=== PATIENT | male | born 1975 | race Caucasian/White ===

== ENCOUNTER 2016-09-29 20:46 | Inpatient (IN) | payer OTHER ==
[2016-09-29] MEDS ORDERED: NS 1,000 ML IV ONE ×2 (22:05→22:56)
[2016-09-29] MEDS ORDERED: IBUPROFEN 200 MG TAB PO ONE (22:17)
--- NOTE | 2016-09-29 22:17 | EDPHY ---
H & P Stated Complaint: fall 2 days ago bruises to face "lost a day" Time Seen by Provider: 09/29/16 21:31 HPI/ROS: Chief complaint: Sore throat, fevers and chills, fall, amnesia HPI: 41-year-old male with 4 days of sore throat, seen at urgent care with a negative strep. He has been having fevers and chills to 103. Some generalized weakness. Some body aches, nausea and vomiting. It states it last night he fell down the stairs, was found vomit stairs by a friend. Does not know how long as there. Did not show up to work today and is amnestic to most of the day. Feels that he may been delirious. Has had some diarrhea as well. Has had some pain with swallowing. He has been drinking increased fluids today. Last took some ibuprofen yesterday. Denies any other past medical history. No medications or allergies. Has a dry cough which is nonproductive. Moderate occipital headache. ROS: 10 point Review of Systems is negative except as noted in the HPI. Past medical history: none Medications: None Allergies: None Social history: Does not smoke cigarettes, does use daily marijuana, does drink occasional alcohol, none last night Physical exam: Gen: Awake, Alert, No Distress, febrile, tachycardic HEENT: He has periorbital ecchymosis without tenderness, step-offs or deformity Nose: no rhinorrhea Eyes: PERRLA, EOMI Mouth: Moist mucosa Neck: Supple, no JVD Chest: nontender, lungs clear to auscultation Heart: S1, S2 normal, no murmur Abd: Soft, non-tender, no guarding Back: no CVA tenderness, no midline tenderness Ext: no edema, non-tender Skin: no rash Neuro: CN II-XII intact, Sensation grossly intact, Strength 5/5 in bilateral upper and lower extremities - Personal History Current Tetanus/Diphtheria Vaccine: Unsure Current Tetanus Diphtheria and Acellular Pertussis (TDAP): Unsure - Medical/Surgical History Hx Asthma: Yes Hx Chronic Respiratory Disease: No Hx Diabetes: No Hx Cardiac Disease: No Hx Renal Disease: No Hx Cirrhosis: No Hx Alcoholism: No Hx HIV/AIDS: No Hx Splenectomy or Spleen Trauma: No Other PMH: r ankle fx and repair - Social History Smoking Status: Current some day smoker Constitutional: Initial Vital Signs Temperature (C) 36.5 C 09/29/16 20:58 Heart Rate 122 H 09/29/16 20:58 Respiratory Rate 18 09/29/16 20:58 Blood Pressure 104/78 09/29/16 20:58 O2 Sat (%) 88 L 09/29/16 20:58 O2 Delivery Mode Room Air Allergies/Adverse Reactions: No Known Allergies Allergy (Unverified 09/29/16 20:57) Home Medications: Medication Instructions Recorded NK [No Known Home Meds] 09/29/16 Medical Decision Making - Diagnostics Imaging: CT head: Tiny opacity above the left tentorium consistent with a small subarachnoid or subdural hemorrhage. No other intraparenchymal his findings. There is no basilar skull fracture. There is a nasal bone fracture of uncertain age. Interpreted by Dr. Akins. Chest x-ray: Negative. ED Course/Re-evaluation: Chest x-ray is negative. CT scan of his brain shows a tiny subarachnoid above the left tentorium. White count is elevated, heart rate is elevated which meets SIRS criteria. Creatinine is greater than 2 which meets severe sepsis criteria. Severe sepsis is declared at 11:36 p.m.. Cultures have been sent. Lactic acid is pending. 23:[address] dumont, neurosurgery. He will consult on the patient in the morning. He does not want any further CT scanning done until he has evaluated the patient. 23:[address] Mann, trauma surgery. He will consult on the case but does not believe the patient needs to be drip we admitted to the trauma service on last there is a concern by Internal Medicine. Will discussed with the hospitalist. 23:[address] thornton, hospitalist. She will accept the patient to her care. Trauma surgery and Neurosurgery will be consulting. Patient is awake alert without complaint. He is getting his IV fluid bolus right now. Will hold off on antibiotics given his symptoms are likely viral he has no focal bacterial source of infection at this time. Dr. thornton is happy with this decision. Will admit to the [facility] for further care. - Data Points Laboratory Results: Laboratory Results 09/29/16 22:18 09/29/16 22:18 09/29/16 09/29/16 09/29/16 22:18 22:18 22:18 WBC 22.38 10^3/uL H 10^3/uL (3.80-9.50) RBC 4.74 10^6/uL 10^6/uL (4.40-6.38) Hgb 15.5 g/dL g/dL (13.7-17.5) Hct 44.9 % % (40.0-51.0) MCV 94.7 fL fL (81.5-99.8) MCH 32.7 pg pg (27.9-34.1) MCHC 34.5 g/dL g/dL (32.4-36.7) RDW 11.9 % % (11.5-15.2) Plt Count 339 10^3/uL 10^3/uL (150-400) MPV 10.1 fL fL (8.7-11.7) Neut % (Auto) 90.9 % H % (39.3-74.2) Lymph % (Auto) 3.6 % L % (15.0-45.0) [place] % (Auto) 4.9 % % (4.5-13.0) Eos % (Auto) 0.0 % L % (0.6-7.6) Baso % (Auto) 0.1 % L % (0.3-1.7) Nucleat RBC Rel Count 0.0 % % (0.0-0.2) Absolute Neuts (auto) 20.32 10^3/uL H 10^3/uL (1.70-6.50) Absolute Lymphs (auto) 0.80 10^3/uL L 10^3/uL (1.00-3.00) Absolute Monos (auto) 1.10 10^3/uL H 10^3/uL (0.30-0.80) Absolute Eos (auto) 0.01 10^3/uL L 10^3/uL (0.03-0.40) Absolute Basos (auto) 0.03 10^3/uL 10^3/uL (0.02-0.10) Absolute Nucleated RBC 0.00 10^3/uL 10^3/uL (0-0.01) Immature Gran % 0.5 % % (0.0-1.1) Immature Gran # 0.12 10^3/uL H 10^3/uL (0.00-0.10) PT Pending INR Pending APTT Pending Sodium Potassium Chloride Carbon Dioxide Anion Gap BUN Creatinine Estimated GFR Glucose Calcium Total Bilirubin Pending 09/29/16 22:18 WBC RBC Hgb Hct MCV MCH MCHC RDW Plt Count MPV Neut % (Auto) Lymph % (Auto) [place] % (Auto) Eos % (Auto) Baso % (Auto) Nucleat RBC Rel Count Absolute Neuts (auto) Absolute Lymphs (auto) Absolute Monos (auto) Absolute Eos (auto) Absolute Basos (auto) Absolute Nucleated RBC Immature Gran % Immature Gran # PT INR APTT Sodium 135 mEq/L mEq/L (134-144) Potassium 5.1 mEq/L mEq/L (3.5-5.2) Chloride 93 mEq/L L mEq/L (97-110) Carbon Dioxide 24 mEq/l mEq/l (22-31) Anion Gap 18 mEq/L H mEq/L (8-16) BUN 26 mg/dL H mg/dL (7-23) Creatinine 2.0 mg/dL H mg/dL (0.7-1.3) Estimated GFR 37 Glucose 205 mg/dL H mg/dL (70-100) Calcium 9.0 mg/dL mg/dL (8.5-10.4) Total Bilirubin Medications Given: Discontinued Medications Sodium Chloride (Ns) 1,000 mls @ 0 mls/hr IV ONCE ONE PRN Reason: Wide Open Stop: 09/29/16 22:06 Last Admin: 09/29/16 22:23 Dose: 1,000 mls Sodium Chloride (Ns) 1,000 mls @ 0 mls/hr IV ONCE ONE PRN Reason: Wide Open Stop: 09/29/16 22:57 Last Admin: 09/29/16 23:44 Dose: 1,000 mls Ibuprofen (Motrin) 400 mg PO EDNOW ONE Stop: 09/29/16 22:18 Last Admin: 09/29/16 22:37 Dose: Not Given Ketorolac Tromethamine (Toradol) 15 mg IVP EDNOW ONE Stop: 09/29/16 22:25 Last Admin: 09/29/16 22:36 Dose: 15 mg Ketorolac Tromethamine (Toradol) 15 mg IVP EDNOW ONE Stop: 09/29/16 22:43 Last Admin: 09/29/16 22:46 Dose: 15 mg Ondansetron HCl (Zofran) 4 mg IVP EDNOW ONE Stop: 09/29/16 22:25 Last Admin: 09/29/16 22:36 Dose: 4 mg Sodium Chloride (Ns *For Sepsis Order Set Only*) 1,973 ml 30 ml/kg (1973 ml) IV EDNOW ONE Stop: 09/29/16 23:34 Last Admin: 09/29/16 23:46 Dose: 1,973 ml Departure - Departure Disposition: [facility] Inpatient Acute Clinical Impression: Viral illness, Dehydration, Renal insufficiency, Subarachnoid hemorrhage Condition: Fair Referrals: Harry Garrido MD [Primary Care Provider] - As per Instructions
[2016-09-29] MEDS ORDERED: KETOROLAC 15 MG/1 ML SDV IVP ONE ×2 (22:24→22:42)
[2016-09-29] MEDS ORDERED: ONDANSETRON 4 MG/2 ML VIAL IVP ONE (22:24)
[2016-09-29 22:37] LABS: ANION GAP 18 mEq/L (8-16); CARBON DIOXIDE 24 mEq/l (22-31); CHLORIDE 93 mEq/L (97-110); GLOMERULAR FILTRATION RATE 37; GLUCOSE 205 mg/dL (70-100); POTASSIUM 5.1 mEq/L (3.5-5.2); SODIUM 135 mEq/L (134-144)
[2016-09-29 23:01] LABS: % IMMATURE GRANULYOCYTES 0.5 % (0.0-1.1); ABSOLUTE IMMATURE GRANULOCYTES 0.12 10^3/uL (0.00-0.10); ADD DIFF? NO; ADD MORPH? NO; ADD SCAN? NO; ATYPICAL LYMPHOCYTE FLAG 10 (0-99); FRAGMENT RBC FLAG 0 (0-99); HEMATOCRIT 44.9 % (40.0-51.0); HEMOGLOBIN 15.5 g/dL (13.7-17.5); LEFT SHIFT FLG 0 (0-99); LIPEMIA HEMOLYSIS FLAG 90 (0-99); MEAN CELL HEMOGLOBIN 32.7 pg (27.9-34.1); MEAN CELL HEMOGLOBIN CONCENTR. 34.5 g/dL (32.4-36.7); MEAN CELL VOLUME 94.7 fL (81.5-99.8); MEAN PLATELET VOLUME 10.1 fL (8.7-11.7); PLATELET CLUMPS FLAG 20 (0-99); PLATELET COUNT 339 10^3/uL (150-400); RED BLOOD CELL COUNT 4.74 10^6/uL (4.40-6.38); RED CELL DISTRIBUTION WIDTH 11.9 % (11.5-15.2)
[2016-09-29] MEDS ORDERED: NS 1,000 ML BAG *FOR SEPSIS ORDER SET ONLY IV ONE (23:33)
[2016-09-29 23:51] LABS: BILIRUBIN,TOTAL 0.8 mg/dL (0.1-1.4); INR 1.29 (0.83-1.16); PROTIME(PATIENT) 16.1 SEC (12.0-15.0)
[2016-09-29 23:52] LABS: APTT 28.9 SEC (23.0-38.0)
[2016-09-30] MEDS ORDERED: ONDANSETRON 4 MG/2 ML VIAL IVP PRN (00:10)
[2016-09-30] MEDS ORDERED: ONDANSETRON DISINTEGRATING 4 MG TAB PO PRN (00:10)
[2016-09-30] MEDS ORDERED: HYDROCODONE/APAP 5/325 TAB PO PRN (00:10)
[2016-09-30] MEDS ORDERED: ACETAMINOPHEN 500 MG TAB PO PRN (00:10)
[2016-09-30] MEDS ORDERED: LORazepam 0.5 MG TAB PO PRN (00:10)
--- NOTE | 2016-09-30 00:49 | GCON ---
DATE OF CONSULTATION: 09/30/2016 CHIEF COMPLAINT: Possible fall. HISTORY OF PRESENT ILLNESS: This is a 41-year-old male who presents to the emergency department thi s evening after being found by his girlfriend. Per both their report, the patient was last seen Sat evening where he had dinner with friends. He was drinking alcohol and went home about 10:30 at night. He failed to show up for work this morning, and his girlfriend finished her job around 5 p.m . and found him at home in bed. He is amnestic to the events that happened throughout the entire da y. His first memory being that of seeing girlfriend this evening. He does state that he thinks he ma y have fallen, but is not sure. He does state that he has some steep steps but really has no idea a s to where the entire day went. He presents here complaining of small headache, otherwise feels well . Denies nausea or vomiting. His airway, breathing, and circulation are completely intact at this point in time; however, he does have some significant throat pain, for which he is being admitted to the Medicine Service for further treatment. The remainder of his primary survey on my examination is completely within normal limits. PAST MEDICAL HISTORY: None, although he does not see physicians regularly. PAST SURGICAL HISTORY: Right ankle injury fixed remotely. CURRENT MEDICATIONS: None. ALLERGIES: None. SOCIAL HISTORY: Social drinker, previous cocaine user. Does use marijuana and occasional benzodiaz epines. REVIEW OF SYSTEMS: A full 10-point review was performed, and unless explicitly stated above is othe rwise negative. PHYSICAL EXAMINATION: VITAL SIGNS: Temperature 36.1, blood pressure 116/74, heart rate 108, and he is 99% on room air. GENERAL: He is alert, somewhat disoriented, but in no acute distress. HEENT: Pupils are equal, round, and reactive to light and accommodation bilaterally. His extraocular mov ements are intact. NECK: Soft, supple without crepitus or tenderness. There is no midline C-spine tenderness. CHEST: Nontender. There is no crepitus or step off. LUNGS: Clear. HEART: Regular heart tones without murmurs. ABDOMEN: Soft, nondistended, with good bowel sounds. PELVIS: Stabl e to both AP and lateral compression. He has 2+ femoral, popliteal, DP pulses bilaterally. EXTREMI TIES: No visible signs of injury and are otherwise warm and well perfused. NEURO: Completely neur ologically intact without any focal deficits. LABORATORY DATA: Leukocytosis to 22,000, glucose elevated at 205. CT scan shows a small tentorial subdural hematoma. Chest x-ray is clear. ASSESSMENT AND PLAN: A 41-year-old male, possible fall with small subdural. The patient will be shi bsequently admitted for his underlying sepsis and leukocytosis to the Medicine Service to be treated appropriately. I see no other obvious signs of trauma other than some bilateral black eyes. We wi ll plan to monitor him overnight. I am okay with him eating. Neurosurgical Service will also consu lt for his small subdural, likely nonoperative. Will plan to re-evaluate with a tertiary survey in the morning to ensure that no other findings are found. /[id number]/MODL
[2016-09-30 01:03] LABS: COLOR AMBER; LEUKOCYTE ESTERASE,URINE NEGATIVE (NEGATIVE); NITRITE,URINE NEGATIVE (NEGATIVE)
[2016-09-30 01:06] LABS: BACTERIA TRACE /hpf (NONE SEEN); HYALINE CASTS 25-50 /lpf (0-1); MUCUS 4+ /lpf (NONE-1+); WBC,URINE 15-25 /hpf (0-3)
--- NOTE | 2016-09-30 01:35 | PDGENHP ---
History and Physical - Chief Complaint feeling unwell - History of Present Illness Patient is a 41-year-old male with no known past medical history, although with no medical follow-up for over 20 years, presents to the ED complaining of sore throat, fevers. Patient states symptoms started on 09/25 with sore throat and R -sided neck pain, associated with a fever to 103F. He was evaluated in an Urgent care, tested negative for strep and was discharged without any antibiotics. Reports his symptoms continued, but he felt well enough to go to work on 09/28 although he was having persistence fevers between 101-103F and sore throat. During this time he also had decreased oral intake /lack of appetite, but denies any nausea or vomiting. Patient returned home from work early on 09/28 reports remembering eating dinner and then going to sleep. The next thing he remembers is being awoke in by his girlfriend this evening at around 5:00 p.m. Patient's girlfriend states when she arrived at his house he was sleeping, but on awakening was confused and had bruises on his face. He also developed several episodes of vomiting, nonbilious/nonbloody, and one episode of diarrhea. Given this, patient's girlfriend brought him to the ED for further evaluation. Patient is not remember any obvious trauma to the himself, although he reports having very steep the steps in his home and states he may have fallen off of these. He reports pain on the bridge of his nose, but denies any other sites of pain. He feels his sore throat has been improving and is less severe today. He denies any associated headache, cough, abdominal pain or dysuria. On arrival to the ED patient was afebrile and hemodynamically stable. Labs revealed leukocytosis, elevated lactate and elevated BUN and creatinine. Chest x-ray did not reveal any obvious infiltrate. CT head was obtained and revealed nasal bone fracture and small volume left sub-tentorial subarachnoid hemorrhage. general surgery and Neurosurgery were consulted and the patient was admitted to the hospital service for further management. History Information - Allergies/Home Medication List Allergies/Adverse Reactions: No Known Allergies Allergy (Unverified 09/29/16 20:57) Home Medications: NK [No Known Home Meds] 09/29/16 [Last Taken Unknown] I have personally reviewed and updated: family history, medical history, social history, surgical history - Past Medical History Additional medical history: No known medical history - Surgical History Additional surgical history: right ankle fracture repair - Family History Positive for: non-pertinent - Social History Smoking Status: Never smoked Alcohol Use: Occasionally Drug Use: Marijuana ( smokes marijuana daily), Other ( distant history of cocaine use, occasional benzo use, denies any other recreational drug use) Review of Systems ROS: 10pt was reviewed & negative except for what was stated in HPI & below Physical Exam Temp Pulse Resp BP Pulse Ox 36.1 C 108 H 18 116/74 89 L 09/29/16 23:44 09/30/16 00:16 09/30/16 00:16 09/30/16 00:16 09/30/16 00:16 Constitutional: no apparent distress, appears nourished, not in pain Eyes: PERRL, anicteric sclera, EOMI, other (periorbital ecchymoses bilaterally) Ears, Nose, Mouth, Throat: moist mucous membranes, hearing normal, ears appear normal, no oral mucosal ulcers Cardiovascular: regular rate and rhythym, no murmur, rub, or gallop, pulses symmetric bilaterally, No JVD, No edema Peripheral Pulses: 2+: dorsalis-pedis (R), dorsalis-pedis (L) Respiratory: no respiratory distress, no rales or rhonchi, clear to auscultation Gastrointestinal: normoactive bowel sounds, soft, non-tender abdomen, no palpable masses, No tenderness, No guarding, No rebound, No distension Genitourinary: no bladder fullness, no bladder tenderness Skin: warm, normal color, no rashes or abrasions, no fluctuance, No mottled Musculoskeletal: full muscle strength, no muscle tenderness, normal joint ROM, no joint effusions Neurologic: AAOx3, sensation intact bilaterally, CN II-XII Intact, No weakness, No numbness Psychiatric: interacting appropriately, not anxious, not encephalopathic, thought process linear Lab Data & Imaging Review 09/30/16 04:26 09/30/16 04:26 WBC 22.38 10^3/uL (3.80-9.50) H 09/29/16 22:18 RBC 4.74 10^6/uL (4.40-6.38) 09/29/16 22:18 Hgb 15.5 g/dL (13.7-17.5) 09/29/16 22:18 Hct 44.9 % (40.0-51.0) 09/29/16:18 MCV 94.7 fL (81.5-99.8) 09/29/16 22:18 MCH 32.7 pg (27.9-34.1) 09/29/16: MCHC 34.5 g/dL (32.4-36.7) 09/29/16:18 RDW 11.9 % (11.5-15.2) 09/29/16: Plt Count 339 10^3/uL (150-400) 09/29/16: MPV 10.1 fL (8.7-11.7) 09/29/16:18 Neut % (Auto) 90.9 % (39.3-74.2) H 09/29/16: Lymph % (Auto) 3.6 % (15.0-45.0) L 09/29/16:18 [place] % (Auto) 4.9 % (4.5-13.0) 09/29/16:18 Eos % (Auto) 0.0 % (0.6-7.6) L 09/29/16: Baso % (Auto) 0.1 % (0.3-1.7) L 09/29/16:18 Nucleat RBC Rel Count 0.0 % (0.0-0.2) 09/29/16: Absolute Neuts (auto) 20.32 10^3/uL (1.70-6.50) H 09/29/16:18 Absolute Lymphs (auto) 0.80 10^3/uL (1.00-3.00) L 09/29/16:18 Absolute Monos (auto) 1.10 10^3/uL (0.30-0.80) H 09/29/16:18 Absolute Eos (auto) 0.01 10^3/uL (0.03-0.40) L 09/29/16: Absolute Basos (auto) 0.03 10^3/uL (0.02-0.10) 02/25/17 22:18 Absolute Nucleated RBC 0.00 10^3/uL (0-0.01) 09/29/16 22:18 Immature Gran % 0.5 % (0.0-1.1) 09/29/16 22:18 Immature Gran # 0.12 10^3/uL (0.00-0.10) H 09/29/16 22:18 PT 16.1 SEC (12.0-15.0) H 09/29/16 22:18 INR 1.29 (0.83-1.16) H 09/29/16 22:18 APTT 28.9 SEC (23.0-38.0) 09/29/16 22:18 VBG Lactic Acid 2.8 mmol/L (0.7-2.1) H 09/30/16 00:02 Sodium 135 mEq/L (134-144) 09/29/16 22:18 Potassium 5.1 mEq/L (3.5-5.2) 09/29/16 22:18 Chloride 93 mEq/L (97-110) L 09/29/16 22:18 Carbon Dioxide 24 mEq/l (22-31) 09/29/16 22:18 Anion Gap 18 mEq/L (8-16) H 09/29/16 22:18 BUN 26 mg/dL (7-23) H 09/29/16 22:18 Creatinine 2.0 mg/dL (0.7-1.3) H 09/29/16 22:18 Estimated GFR 37 09/29/16 22:18 Glucose 205 mg/dL (70-100) H 09/29/16 22:18 Calcium 9.0 mg/dL (8.5-10.4) 09/29/16 22:18 Total Bilirubin 0.8 mg/dL (0.1-1.4) 09/29/16 22:18 Visualized and Interpreted Chest x-ray results: Yes Chest X-Ray results: no infiltrate, normal Visualized and Interpreted imaging results: Yes Interpretation: CT head: nasal bone fracture, small volume subarachnoid hemorrhage Assessment & Plan Assessment: patient is a 41-year-old male with no known medical history presents to the ED complaining of 4 days of sore throat, fevers and recently vomiting. ED evaluation reveals leukocytosis, elevated lactate and acute renal failure consistent with an acute infection likely viral. In addition, patient has evidence of facial trauma with CT head confirming subarachnoid hemorrhage, although he cannot remember any obvious trauma. Plan: # severe sepsis Patient with tachycardia, leukocytosis and symptoms of upper respiratory infection. Elevated lactic acid and evidence of renal dysfunction is consistent with severe sepsis. CXR does not reveal evidence of pneumonia. UA and flu swab are pending. On exam, patient without obvious lymphadenopathy or cervical tenderness. Suspect viral upper respiratory infection. Will hold off on antibiotics at this time and treat symptomatically. - IVF hydration - f/u blood cultures, UA and flu swab - zofran prn nausea - repeat lactic acid s/p 30cc/kg fluid bolus - pain relief prn # facial trauma, intracranial hemorrhage Patient does not recall an obvious trauma, but reports being quite fatigued/ lethargic over the course of 09/28, with a possible fall down 1-2 stairs. Acute encephalopathy/lethargy likely related to severe dehydration and acute infection. MS appears to be back at baseline after initial fluid resuscitation. Will check drug screen. Neurosurgery has been consulted regarding ICH, will f/ u. Trauma surgery also onboard, evaluation appreciated. # elevated BUN/Cr Presumed to be acute renal failure due to severe dehydration (pre-renal) and possible ATN due to severe sepsis. However, patient does not have regular medical follow-up, so baseline renal function is not known. Will reassess after initial IVF resuscitation. Will also check UA for proteinuria, urine sodium, creatinine and also renal ultrasound. Will avoid NSAIDS and all nephrotoxic agents. # lactic acidosis Appears to be related to significant hypovolemia and sepsis. Will trend after appropriate IVF resuscitation. # acute hypoxia Patient occasionally hypoxic over ED course, which then resolves without supplemental O2. CXR without obvious abnormalities. Although patient denies, will check drug screen to r/o opioid use. # hyperglycemia Glu on BMP is >200. Patient does not report a personal or family history of DM, but he has not been evaluated by a PMD for > 20 years. Will check HbA1c and lipid panel and cont to monitor glucose. # dispo: admit to inpatient service for likely > 2 [place] stay given severe sepsis # gen: regular diet DVT ppx: low risk and ICH, so medical ppx contraindicated Full code
[2016-09-30 02:05] LABS: PHENCYCLIDINE URINE BCH < 6 ng/ml (NEGATIVE); PHENCYCLIDINE URINE BCH NEGATIVE (NEGATIVE)
[2016-09-30 02:06] LABS: TETRAHYDROCANNABINOL URINE > 800 ng/mL (NEGATIVE)
[2016-09-30] MEDS: NS 1,000 ML IV SCH ×3 (02:18→16:49)
[2016-09-30 02:20] LABS: LACGHOST ORDER
[2016-09-30 04:42] LABS: % IMMATURE GRANULYOCYTES 0.6 % (0.0-1.1); ABSOLUTE IMMATURE GRANULOCYTES 0.08 10^3/uL (0.00-0.10); ADD DIFF? NO; ADD MORPH? NO; ADD SCAN? NO; ATYPICAL LYMPHOCYTE FLAG 10 (0-99); FRAGMENT RBC FLAG 0 (0-99); HEMATOCRIT 39.2 % (40.0-51.0); HEMOGLOBIN 13.3 g/dL (13.7-17.5); LEFT SHIFT FLG 0 (0-99); LIPEMIA HEMOLYSIS FLAG 90 (0-99); MEAN CELL HEMOGLOBIN 32.6 pg (27.9-34.1); MEAN CELL HEMOGLOBIN CONCENTR. 33.9 g/dL (32.4-36.7); MEAN CELL VOLUME 96.1 fL (81.5-99.8); MEAN PLATELET VOLUME 9.9 fL (8.7-11.7); PLATELET CLUMPS FLAG 10 (0-99); PLATELET COUNT 252 10^3/uL (150-400); RED BLOOD CELL COUNT 4.08 10^6/uL (4.40-6.38); RED CELL DISTRIBUTION WIDTH 11.9 % (11.5-15.2)
[2016-09-30 04:48] LABS: ANION GAP 13 mEq/L (8-16); CALCIUM 8.1 mg/dL (8.5-10.4); CARBON DIOXIDE 28 mEq/l (22-31); CHLORIDE 93 mEq/L (97-110); CHOLESTEROL 113 mg/dL (140-200); CHOLESTEROL/HDL RATIO 3.14 RATIO (1.00-4.97); CREATININE 1.6 mg/dL (0.7-1.3); GLOMERULAR FILTRATION RATE 48; GLUCOSE 157 mg/dL (70-100); HIGH DENSITY LIPOPROTEIN 36 mg/dL (40-65); LDL/HDL RATIO 1.64 RATIO (1.00-3.64); LOW DENSITY LIPOPROTEIN 59 mg/dL (70-100); MAGNESIUM 1.9 mg/dL (1.6-2.3); NON-HIGH DENSITY LIPOPROTEIN 77 mg/dL (90-129); POTASSIUM 5.1 mEq/L (3.5-5.2); SODIUM 134 mEq/L (134-144); TRIGLYCERIDE 94 mg/dL (40-150); VERY LOW DENSITY LIPOPROTEINS 18 mg/dL (8-25)
[2016-09-30 04:53] LABS: INR 1.37 (0.83-1.16); PROTIME(PATIENT) 16.9 SEC (12.0-15.0)
[2016-09-30 04:54] LABS: APTT 29.8 SEC (23.0-38.0)
--- NOTE | 2016-09-30 09:45 | GCON ---
HISTORY OF PRESENT ILLNESS: The patient is a 41-year-old male with no significant past medical history who had developed fevers and sore throat several days ago which initially was worked up in the urgent care and he was sent home. He was found by his girlfriend resting but confused and had bruises on his face and he had developed several episodes of vomiting and was brought to the ED for evaluation. The patient does not remember any obvious trauma or falls and has no ongoing issues with his balance. CT of his head at that time showed a nasal bone fracture and a very small volume left subtentorial, subarachnoid hemorrhage and thus we were consulted for management. PAST MEDICAL HISTORY: None. PAST SURGICAL HISTORY: Right ankle fracture repair. FAMILY HISTORY: Noncontributory. SOCIAL HISTORY: The patient is a nonsmoker. Drinks alcohol. Smokes marijuana. REVIEW OF SYSTEMS: Negative except as stated above. ALLERGIES: No known drug allergies. PHYSCIAL EXAMINATION: GENERAL: The patient is in no apparent distress. VITAL SIGNS: Stable. NEUROLOGIC: appears cognitively intact, A&ox3 Cranial nerves 2 through 12 are grossly intact. Extraocular movements intact. Pupils are equal and reactive to light. Tongue is midline. No facial droop. Strength in bilateral lower and upper extremities is 5/5 and intact. The patient was positive to light touch throughout his extremities. ASSESSMENT AND PLAN: A 41-year-old male with scant, very small, possible left subtentorial, subarachnoid hemorrhage with no neurological symptoms. The patient is cognitively intact. Neuro is stable. Bleed is not sufficient to warrant any further scans or follow up from a neurosurgical perspective. He may call us if he has any issues or develops any symptoms. However, I do not anticipate this to be the case. Thank you for this consult. We will sign-off at this time. The patient was seen and discussed by Dr. Espinal at approximately 9am. /[id number]/MODL MTDD
--- NOTE | 2016-09-30 11:57 | TRAUMAPN ---
Assessment/Plan: SDH stable no neuro decline overnight Nasal fx stable non displaced (ENT f/u outpatient if desired Raccoon eyes as expected. EOMI WBC stablizing Dehydration improving with NS Trauma will sign off at this time. Call with further concerns Objective: Vital Signs Temp Pulse Resp BP Pulse Ox 37.1 C 89 15 129/93 H 91 L 09/30/16 08:00 09/30/16 08:00 09/30/16 08:00 09/30/16 08:00 09/30/16 08:00 Laboratory Results 09/30/16 04:26 09/30/16 04:26 09/29/16 09/30/16 10/01/16 05:59 05:59 05:59 Intake Total 2650 Output Total 100 Balance 2550 PT 16.9 SEC (12.0-15.0) H 09/30/16 04:26 INR 1.37 (0.83-1.16) H 09/30/16 04:26
--- NOTE | 2016-09-30 12:29 | HOSPPROG ---
Hospitalist Progress Note Assessment/Plan: Patient is a 41-year-old male with no known medical history presents to the ED complaining of 4 days of sore throat, fevers and recently vomiting. ED evaluation reveals leukocytosis, elevated lactate and acute renal failure consistent with an acute infection likely viral. In addition, patient has evidence of facial trauma with CT head confirming subarachnoid hemorrhage, although he cannot remember any obvious trauma. I spent > 30 minutes with the patient and his ex-girlfriend at the bedside. The patient lives in the [place] area. He slept through Saturday. His girlfriend came to get him because he works at the [employer]. He was vomiting. He says he slept through the whole day Saturday and has no recollection of that day. He has steep stairs in his home and is unclear if he fell. His ex girlfriend found him up in his room asleep. Prior to this to this he went to urgent care this last Saturday. He was having an ongoing sore throat. This was negative for strep. At that time he took 1 of his mom's Exchange and 1 of his friends Oxy. He also was very upset about the break-up with his girlfriend. He then took a Xanax. During my interview his main complaint is a persistent sore throat. # sepsis tachycardia resolved, better wbc count chest xray shows no evidence of pna UA shows some pyuria negative for flu poss upper respiratory viral infection recheck lactate now #SAH -small -appreciate neurosurgery #. facial trauma /nondisplaced nasal fx -appreciate trauma team #. Sore throat that has been ongoing his right tonsil area is reddened will check an for mono /start him on azithromycin he has an elevated white blood cell count and continues to complain of throat pain #acute renal fx hold all nephrotoxic agents # lactic acidosis Appears to be related to significant hypovolemia and sepsis. Will trend after appropriate IVF resuscitation. #+ urine tox screen +for opiods, benzos, + marijuana the patient and I had a long discussion about the use opioids, benzodiazepines and cannabis/ I suspect that these caused him to have no recollection of his day Saturday. Explained to them that the combination of these medications is dangerous. Recommending when he feels stressed to get outside and walk. He is very agreeable to this # acute hypoxia O2 sats on room air stable # hyperglycemia glucose on admit is >200 stress induced hemoglobin A1c is pending # dispo: admit to inpatient service for likely > 2 MN # plan. If his kidney function improves tomorrow he can be discharged home. Will start him on azithromycin. Subjective: Patient is complaining of a sore throat. Objective: Vital Signs Temp Pulse Resp BP Pulse Ox 36.9 C 65 15 123/87 H 98 09/30/16 12:00 09/30/16 12:00 09/30/16 12:00 09/30/16 12:00 09/30/16 12:00 Laboratory Results 09/30/16 04:26 09/30/16 04:26 09/29/16 09/30/16 10/01/16 05:59 05:59 05:59 Intake Total 2650 Output Total 100 Balance 2550 PT 16.9 SEC (12.0-15.0) H 09/30/16 04:26 INR 1.37 (0.83-1.16) H 09/30/16 04:26 - Physical Exam Constitutional: uncomfortable Eyes: other ( Raccoon eyes) Ears, Nose, Mouth, Throat: hearing normal, other ( right tonsil is reddened and slightly swollen) Cardiovascular: regular rate and rhythym, no murmur, rub, or gallop Respiratory: no respiratory distress Gastrointestinal: normoactive bowel sounds Skin: warm Musculoskeletal: full muscle strength Neurologic: AAOx3 Psychiatric: interacting appropriately, not anxious, not encephalopathic ICD10 Worksheet Patient Problems: Problems Problem Status Onset Dehydration Acute Renal insufficiency Acute Subarachnoid hemorrhage Acute Viral illness Acute
[2016-09-30] MEDS ORDERED: AZITHROMYCIN 250 MG TAB PO ONE (15:33)
[2016-10-01 03:38] LABS: HEMOGLOBIN A1C 5.7 % (4.0-6.0)
[2016-10-01 05:26] LABS: % IMMATURE GRANULYOCYTES 0.2 % (0.0-1.1); ABSOLUTE IMMATURE GRANULOCYTES 0.02 10^3/uL (0.00-0.10); ADD DIFF? NO; ADD MORPH? NO; ADD SCAN? NO; ATYPICAL LYMPHOCYTE FLAG 30 (0-99); FRAGMENT RBC FLAG 0 (0-99); HEMATOCRIT 36.9 % (40.0-51.0); HEMOGLOBIN 12.7 g/dL (13.7-17.5); LEFT SHIFT FLG 0 (0-99); LIPEMIA HEMOLYSIS FLAG 90 (0-99); MEAN CELL HEMOGLOBIN 32.5 pg (27.9-34.1); MEAN CELL HEMOGLOBIN CONCENTR. 34.4 g/dL (32.4-36.7); MEAN CELL VOLUME 94.4 fL (81.5-99.8); MEAN PLATELET VOLUME 10.1 fL (8.7-11.7); PLATELET CLUMPS FLAG 10 (0-99); PLATELET COUNT 180 10^3/uL (150-400); RED BLOOD CELL COUNT 3.91 10^6/uL (4.40-6.38); RED CELL DISTRIBUTION WIDTH 11.9 % (11.5-15.2)
[2016-10-01 05:46] LABS: ALKALINE PHOSPHATASE 63 IU/L (38-126); ANION GAP 9 mEq/L (8-16); BILIRUBIN,TOTAL 0.6 mg/dL (0.1-1.4); CALCIUM 8.2 mg/dL (8.5-10.4); CARBON DIOXIDE 28 mEq/l (22-31); CHLORIDE 103 mEq/L (97-110); CREATININE 0.9 mg/dL (0.7-1.3); GLOMERULAR FILTRATION RATE > 60; GLUCOSE 111 mg/dL (70-100); POTASSIUM 4.2 mEq/L (3.5-5.2); SODIUM 140 mEq/L (134-144); TOTAL PROTEIN 5.5 g/dL (6.3-8.2)
[2016-10-01 05:57] LABS: ASPARTATE AMINOTRANSFERASE 1224 IU/L (17-59)
[2016-10-01 06:14] LABS: ALANINE AMINOTRANSFERASE 2236 IU/L (21-72)
[2016-10-01 08:55] VITALS: PULSE 76
[2016-10-01] MEDS ORDERED: AZITHROMYCIN 250 MG TAB PO SCH (09:00)
[2016-10-01] MEDS ORDERED: LIDOCAINE 2% VISCOUS 15 ML UDCUP PO PRN (11:53)
[2016-10-01] MEDS ORDERED: BENZONATATE 100 MG CAP PO PRN (11:53)
[2016-10-01] MEDS ORDERED: ONDANSETRON 4 MG/2 ML VIAL IVP PRN (11:53)
[2016-10-01] MEDS ORDERED: ONDANSETRON DISINTEGRATING 4 MG TAB PO PRN (11:53)
[2016-10-01 14:04] VITALS: BP 151/115; RESP 18; TEMP 98.5; O2SAT 96
--- NOTE | 2016-10-01 16:19 | PDDCSUM ---
Discharge Summary Discharge Summary: DISCHARGE SUMMARY FOLLOW-UP ITEMS: Repeat liver panel, follow up with GI DATE OF ADMISSION: 09/29/2016 DATE OF DISCHARGE: 10/01/2016 DISCHARGE DIAGNOSES: 1. Acute encephalopathy 2. Acute subarachnoid hemorrhage 3. Suspected upper respiratory infection 4. Acute nondisplaced nasal fracture 5. Acute kidney injury 6. Acute metabolic acidosis 7. Acute polysubstance abuse 8. Acute hyperglycemia 9. Transaminitis CONSULTATIONS: Trauma service, Neurosurgery PROCEDURES / IMAGING: Noncontrast head CT demonstrating small subarachnoid hemorrhage in the left tentorial small ascites, liver ultrasound demonstrating no abnormalities, no portal vein thrombosis, no hydronephrosis CHIEF COMPLAINT: Acute unresponsiveness SUBJECTIVE: Patient is feeling well at time of discharge, he continues to have a mild sore throat, mild cough, mild nausea, tolerating oral intake PHYSICAL EXAM ON DISCHARGE: Systolic blood pressure is 130, heart rate 90, afebrile overnight, lungs are clear to auscultation bilaterally without any crackles or wheezes comma abdomen is soft nontender nondistended no masses are palpated, negative Palacios sign, no lower extremity edema LABS ON DISCHARGE: AST 1200, ALT 2200, alk-phos 60, total bilirubin normal, albumin 3, creatinine 0.9, potassium 4.2, white blood cell count 9900, hemoglobin 12.7, LDL 60, urinalysis with hyaline casts, urine tox positive for opiates benzos and marijuana, influenza PCR negative HOSPITAL COURSE BY PROBLEM: 1. Acute encephalopathy. Evidenced by global brain dysfunction characterized as unresponsiveness, somnolence, confusion, of which are an acute change from his baseline, most likely secondary to a combination of polysubstance abuse and the toxic effects thereof, metabolic effects of acidosis. Patient's mental status has returned to baseline the safe for discharge home. 2. Acute subarachnoid hemorrhage. Patient sustained an acute SAH in the setting head trauma with an unwitnessed fall. He was seen in consultation by Neurosurgery and they determined this to be non operative management. Did not recommend any repeat head imaging in the absence of symptoms. 3. Suspected upper respiratory infection. Patient has URI symptoms including sore throat and cough without any focal infiltrates on chest imaging. His overall presentation did not seem consistent with sepsis or a dysregulated response to an infection. He most likely is recovering from a viral infection and he should be treated supportively with as needed cough suppressant as well as viscous lidocaine for sore throat. 4. Transaminitis. Unclear etiology, potentially secondary to shock liver in the setting of unresponsiveness an unwitnessed down time. His ultrasound demonstrated no evidence of liver or portal vein pathology. Recommend to the patient that he have a repeat liver panel in approximately 1 week and follow up with GI [facility] the [facility] for further guidance. I recommended that he avoid Tylenol and use as needed Zofran if he experiences any ongoing abdominal symptoms. 5. Metabolic acidosis. Acute, secondary to lactic acid, unclear if this is secondary to hypotension in the field versus unwitnessed seizure. Either 1 of these areas is equally possible in the setting polysubstance intoxication an unwitnessed down time. Consequently we have recommended that he follow up with Dr. Graf and that he avoid ingesting illegal substances in the future. 6. Acute nondisplaced nasal fracture. Patient was seen by the trauma service, he did not require additional ENT consultation, the patient does not require any intervention at this time. 7. Acute kidney injury. Most likely secondary to renal hypoperfusion in the setting of issues outlined above. He received IV fluids in his renal function has returned to baseline. 8. Acute polysubstance abuse. Patient reports that his use Xanax, oxycodone, Vicodin, marijuana, 1 week of alcohol binge, or all an episodic use of substances and are not chronically misused. The patient did not have any evidence of acute substance withdrawal, and he is safe for discharge home with recommendations of abstinence. 9. Acute hyperglycemia. Most likely stress response in the setting of acute illness above. DISCHARGE MEDICATIONS: Please see official discharge medication reconciliation sheet in chart , Zofran as needed, Tessalon as needed, viscous lidocaine as needed. DISCHARGE INSTRUCTIONS: Patient should follow up with Dr. sweeney in approximately 1 week time for repeat liver panel. He should follow up with Dr. Homar Titus for ongoing medical care. TIME SPENT: Greater than 30 minutes were spent on direct patient care, as well as discharge planning and preparation.
--- NOTE | 2016-10-04 12:34 | PQFORM ---
PHYSICIAN QUERY FORM Needs Your Response This query form is being sent to you to assure this patient record is coded properly. Please respond to the question below: SIGHT EFFECTS SPECIALIST QUESTION: Dr. Herrera, The diagnosis of Severe Sepsis is documented on the patient's H&P and the diagnosis of Sepsis is listed on the Hospitalist Progress note dated 09/30/16. Neither of these is documented on the Discharge Summary. Would either of these be appropriate to add to the Discharge Summary? Many thanks, Layla Rojas, KAREN HIM/Coding Department INSTRUCTIONS FOR RESPONSE: Answer question by clicking on the "Edit Document" button. Move cursor to area below the stars. When complete, hit "Save." Click on the "Sign" button, then click "Sign" again. Type in your PIN and hit "Enter." The patient did NOT have sepsis or severe sepsis. I stated this under " Suspected URI", as I did not feel comfortable designating that severity of illness or diagnosis to this case, as the clinical evidence did not seem to support it, in my opinion. Thank you for querying. Srinivasan CAMARGO
== END 2016-10-01 17:22 | disposition home or self-care (01) | DRG 82 ==
LOC: F3N 09-30 01:37
PROVIDERS: ADMIT Internal Medicine; ATTEND Internal Medicine
DX: S06.6X9A Traumatic subarachnoid hemorrhage with loss of consciousness of unspecified duration, initial encounter (principal); S02.2XXA Fracture of nasal bones, initial encounter for closed fracture; G93.41 Metabolic encephalopathy; N17.9 Acute kidney failure, unspecified; J22 Unspecified acute lower respiratory infection; F12.10 Cannabis abuse, uncomplicated; F11.10 Opioid abuse, uncomplicated; E87.2 Acidosis; R09.02 Hypoxemia; R73.9 Hyperglycemia, unspecified; W10.9XXA Fall (on) (from) unspecified stairs and steps, initial encounter; Y92.018 Other place in single-family (private) house as the place of occurrence of the external cause
CPT/HCPCS: 80307; 92523-GN; 96374; 97161-GP; G0480; J1885; J2405

== ENCOUNTER 2016-10-18 22:15 | Emergency (ER) | payer OTHER ==
[2016-10-18 22:38] VITALS: TEMP 98.2
[2016-10-18 23:04] LABS: % IMMATURE GRANULYOCYTES 0.3 % (0.0-1.1); ABSOLUTE IMMATURE GRANULOCYTES 0.04 10^3/uL (0.00-0.10); ADD DIFF? NO; ADD MORPH? NO; ADD SCAN? NO; ATYPICAL LYMPHOCYTE FLAG 0 (0-99); FRAGMENT RBC FLAG 0 (0-99); HEMATOCRIT 43.3 % (40.0-51.0); HEMOGLOBIN 14.6 g/dL (13.7-17.5); LEFT SHIFT FLG 0 (0-99); LIPEMIA HEMOLYSIS FLAG 80 (0-99); MEAN CELL HEMOGLOBIN 32.1 pg (27.9-34.1); MEAN CELL HEMOGLOBIN CONCENTR. 33.7 g/dL (32.4-36.7); MEAN CELL VOLUME 95.2 fL (81.5-99.8); MEAN PLATELET VOLUME 9.5 fL (8.7-11.7); PLATELET CLUMPS FLAG 10 (0-99); PLATELET COUNT 321 10^3/uL (150-400); RED BLOOD CELL COUNT 4.55 10^6/uL (4.40-6.38); RED CELL DISTRIBUTION WIDTH 12.3 % (11.5-15.2)
[2016-10-18 23:12] LABS: ALANINE AMINOTRANSFERASE 100 IU/L (21-72); ALBUMIN 4.3 g/dL (3.5-5.0); ALKALINE PHOSPHATASE 63 IU/L (38-126); ANION GAP 11 mEq/L (8-16); ASPARTATE AMINOTRANSFERASE 54 IU/L (17-59); BILIRUBIN,TOTAL 0.6 mg/dL (0.1-1.4); BILIRUBIN-CONJUGATED 0.5 mg/dL (0.0-0.5); BILIRUBIN-UNCONJUGATED 0.1 mg/dL (0.0-1.1); CALCIUM 9.9 mg/dL (8.5-10.4); CARBON DIOXIDE 22 mEq/l (22-31); CHLORIDE 102 mEq/L (97-110); CREATININE 0.9 mg/dL (0.7-1.3); ETHANOL SERUM < 10 mg/dL (0-10); GLOMERULAR FILTRATION RATE > 60; GLUCOSE 86 mg/dL (70-100); POTASSIUM 4.4 mEq/L (3.5-5.2); SODIUM 135 mEq/L (134-144); TOTAL PROTEIN 7.1 g/dL (6.3-8.2)
--- NOTE | 2016-10-18 23:41 | EDPHY ---
H & P Stated Complaint: AMS Time Seen by Provider: 10/18/16 22:42 HPI/ROS: Chief complaint: Confusion, slow thinking HPI: 41-year-old male presenting with increasing confusion and states that his thought process or some fluid. Patient has a history significant for having been admitted to the hospital approximately 2 weeks ago after being found down to the bone moves stairs. Patient that time had a small subarachnoid bleed and was found to have an encephalopathy at that time. Patient was discharged home in good condition but states that when he was discharged she was still complaining of feeling a little bit slow in his thought process. He was feeling better so in the course of the last couple of days has resumed using marijuana and drinking some alcohol. Patient was sent home from work 2 days ago because he seemed slow to answer questions. Patient denies any headache. No fevers or chills. No nausea or vomiting. States he feels just a little bit confused but mostly just feels like his thought processes are slowed. Does admit to drinking alcohol and marijuana over the last couple of days. ROS: 10 point Review of Systems is negative except as noted in the HPI. Physical exam: Gen: Awake, Alert, No Distress, mildly slow to answer questions HEENT: He has some mild ecchymosis of the base of his nose with no deformity Eyes: PERRLA, EOMI Mouth: Moist mucosa Neck: Supple, no JVD Chest: nontender, lungs clear to auscultation Heart: S1, S2 normal, no murmur Abd: Soft, non-tender, no guarding Back: no CVA tenderness, no midline tenderness Ext: no edema, non-tender Skin: no rash Neuro: CN II-XII intact, Sensation grossly intact, Strength 5/5 in bilateral upper and lower extremities - Personal History Current Tetanus/Diphtheria Vaccine: Yes Current Tetanus Diphtheria and Acellular Pertussis (TDAP): Yes - Medical/Surgical History Hx Asthma: Yes Hx Chronic Respiratory Disease: No Hx Diabetes: No Hx Cardiac Disease: No Hx Renal Disease: No Hx Cirrhosis: No Hx Alcoholism: No Hx HIV/AIDS: No Hx Splenectomy or Spleen Trauma: No Other PMH: r ankle fx and repair - Social History Smoking Status: Never smoked Constitutional: Initial Vital Signs Temperature (C) 36.8 C 10/18/16 22:31 Heart Rate 84 10/18/16 22:31 Respiratory Rate 12 10/18/16 22:31 Blood Pressure 137/94 H 10/18/16 22:31 O2 Sat (%) 95 10/18/16 22:31 O2 Delivery Mode Room Air Allergies/Adverse Reactions: No Known Allergies Allergy (Unverified 09/29/16 20:57) Home Medications: Medication Instructions Recorded Ibuprofen [Motrin (*)] 400 mg PO DAILY PRN 09/30/16 Benzonatate [Tessalon Pearles] 100 mg PO TID PRN #30 cap 10/01/16 Lidocaine 2% Viscous 5 - 10 ml PO Q6 PRN #200 ml 10/01/16 Ondansetron Odt [Zofran Odt 4 mg 4 mg PO Q4HRS PRN #40 tab 10/01/16 (*)] Medical Decision Making ED Course/Re-evaluation: Patient presenting status post fall several weeks ago with an acute encephalopathy at that time now with some increasing confusion slow to answer the last couple days. Repeat CT scan of his brain is normal. His LFTs have normalized any has a normal ammonia level. Has a mild leukocytosis without a left shift. His tox screen is positive for benzodiazepines and marijuana. Patient is otherwise alert and oriented. His thought process is somewhat slowed but he is otherwise appropriate and his thought processes. I have counseled him that he needs to discontinue alcohol marijuana Invanz or use until his healed from a concussive standpoint. He will follow up with primary care physician. Return for any concerns. There is no evidence of an acute encephalopathy, head injury, metabolic derangement or any other significant process or infection at this time. - Data Points Laboratory Results: Laboratory Results 10/18/16 22:58 10/18/16 22:58 10/19/16 10/18/16 10/18/16 00:00 22:58 22:58 WBC RBC Hgb Hct MCV MCH MCHC RDW Plt Count MPV Neut % (Auto) Lymph % (Auto) [place]cdonald % (Auto) Eos % (Auto) Baso % (Auto) Nucleat RBC Rel Count Absolute Neuts (auto) Absolute Lymphs (auto) Absolute Monos (auto) Absolute Eos (auto) Absolute Basos (auto) Absolute Nucleated RBC Immature Gran % Immature Gran # Sodium 135 mEq/L mEq/L (134-144) Potassium 4.4 mEq/L mEq/L (3.5-5.2) Chloride 102 mEq/L mEq/L (97-110) Carbon Dioxide 22 mEq/l mEq/l (22-31) Anion Gap 11 mEq/L mEq/L (8-16) BUN 15 mg/dL mg/dL (7-23) Creatinine 0.9 mg/dL mg/dL (0.7-1.3) Estimated GFR > 60 Glucose 86 mg/dL mg/dL (70-100) Calcium 9.9 mg/dL mg/dL (8.5-10.4) Total Bilirubin 0.6 mg/dL mg/dL (0.1-1.4) Conjugated Bilirubin 0.5 mg/dL mg/dL (0.0-0.5) Unconjugated Bilirubin 0.1 mg/dL mg/dL (0.0-1.1) AST 54 IU/L IU/L (17-59) ALT 100 IU/L H IU/L (21-72) Alkaline Phosphatase 63 IU/L IU/L (38-126) Ammonia 11.0 uMOL/L uMOL/L (9.0-30.0) Total Protein 7.1 g/dL g/dL (6.3-8.2) Albumin 4.3 g/dL g/dL (3.5-5.0) Lipase 49.0 IU/L IU/L (23-300) Urine Opiates Screen NEGATIVE (NEGATIVE) Urine Barbiturates NEGATIVE (NEGATIVE) Ur Phencyclidine Scrn NEGATIVE (NEGATIVE) Ur Amphetamine Screen NEGATIVE (NEGATIVE) U Benzodiazepines Scrn NON-NEGATIVE H (NEGATIVE) Urine Cocaine Screen NEGATIVE (NEGATIVE) U Marijuana (THC) Screen NON-NEGATIVE H (NEGATIVE) Ethyl Alcohol < 10 mg/dL mg/dL (0-10) 10/18/16 22:58 WBC 12.33 10^3/uL H 10^3/uL (3.80-9.50) RBC 4.55 10^6/uL 10^6/uL (4.40-6.38) Hgb 14.6 g/dL g/dL (13.7-17.5) Hct 43.3 % % (40.0-51.0) MCV 95.2 fL fL (81.5-99.8) MCH 32.1 pg pg (27.9-34.1) MCHC 33.7 g/dL g/dL (32.4-36.7) RDW 12.3 % % (11.5-15.2) Plt Count 321 10^3/uL 10^3/uL (150-400) MPV 9.5 fL fL (8.7-11.7) Neut % (Auto) 70.0 % % (39.3-74.2) Lymph % (Auto) 20.1 % % (15.0-45.0) Mcdonald % (Auto) 7.1 % % (4.5-13.0) Eos % (Auto) 2.0 % % (0.6-7.6) Baso % (Auto) 0.5 % % (0.3-1.7) Nucleat RBC Rel Count 0.0 % % (0.0-0.2) Absolute Neuts (auto) 8.63 10^3/uL H 10^3/uL (1.70-6.50) Absolute Lymphs (auto) 2.48 10^3/uL 10^3/uL (1.00-3.00) Absolute Monos (auto) 0.87 10^3/uL H 10^3/uL (0.30-0.80) Absolute Eos (auto) 0.25 10^3/uL 10^3/uL (0.03-0.40) Absolute Basos (auto) 0.06 10^3/uL 10^3/uL (0.02-0.10) Absolute Nucleated RBC 0.00 10^3/uL 10^3/uL (0-0.01) Immature Gran % 0.3 % % (0.0-1.1) Immature Gran # 0.04 10^3/uL 10^3/uL (0.00-0.10) Sodium Potassium Chloride Carbon Dioxide Anion Gap BUN Creatinine Estimated GFR Glucose Calcium Total Bilirubin Conjugated Bilirubin Unconjugated Bilirubin AST ALT Alkaline Phosphatase Ammonia Total Protein Albumin Lipase Urine Opiates Screen Urine Barbiturates Ur Phencyclidine Scrn Ur Amphetamine Screen U Benzodiazepines Scrn Urine Cocaine Screen U Marijuana (THC) Screen Ethyl Alcohol Departure - Departure Disposition: Home, Routine, Self-Care Clinical Impression: Concussion, Confusion Condition: Good Instructions: Concussion (ED) Additional Instructions: Do not drink alcohol or use any other drugs until your head injury has healed. Follow up with her primary care physician in 3-4 days for any concerns. Referrals: NONE *PRIMARY CARE P,. [Primary Care Provider] - As per Instructions Dalton Mcmanus MD [Medical Doctor] - As per Instructions
[2016-10-19 00:35] VITALS: BP 126/87; PULSE 66; RESP 16; O2SAT 97
== END 2016-10-19 00:29 | disposition home or self-care (01) ==
DX: R41.0 Disorientation, unspecified (principal); J45.909 Unspecified asthma, uncomplicated; S06.0X0A Concussion without loss of consciousness, initial encounter; X58.XXXA Exposure to other specified factors, initial encounter
CPT/HCPCS: 80305; G0480

== ENCOUNTER 2016-12-06 18:03 | Emergency (ER) | payer OTHER ==
--- NOTE | 2016-12-06 18:06 | EDPHY ---
H & P Stated Complaint: Seizure Time Seen by Provider: 12/06/16 18:05 HPI/ROS: CHIEF COMPLAINT: Seizure HISTORY OF PRESENT ILLNESS: This 41-year-old male presenting to the emergency department via EMS. EMS reports witnessed seizure postictal at scene. ED arrival patient is AAO x3 no seizure activity. Patient states was seen back in October for seizure, has had an appointment with Neurology Dr. Doll not any medications at this time. Seen at Dr. Doll office this morning. After further discussion with patient he has reported that he has been decreasing his alcohol intake and alcohol withdrawal could be a component of the seizures REVIEW OF SYSTEMS: Constitutional: No fever, no chills. Eyes: No discharge. ENT: No sore throat. Cardiovascular: No chest pain, no palpitations. Respiratory: No cough, no shortness of breath. Gastrointestinal: No abdominal pain, no vomiting. Genitourinary: No hematuria. Musculoskeletal: No back pain. Abrasion to left ankle Skin: No rashes. Neurological: No headache. Source: Patient, EMS - Medical/Surgical History Hx Asthma: Yes Hx Chronic Respiratory Disease: No Hx Diabetes: No Hx Cardiac Disease: No Hx Renal Disease: No Hx Cirrhosis: No Hx Alcoholism: No Hx HIV/AIDS: No Hx Splenectomy or Spleen Trauma: No Other PMH: r ankle fx and repair - Social History Smoking Status: Never smoked - Physical Exam Exam: General Appearance: Alert, no distress. Eyes: Pupils equal and round no pallor or injection. ENT, Mouth: Mucous membranes moist. Respiratory: There are no retractions, lungs are clear to auscultation. Cardiovascular: Regular rate and rhythm. Gastrointestinal: Abdomen is soft and nontender, no masses, bowel sounds normal. Neurological: No focal deficits. 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 Non tremulous. Ambulatory with a steady gait Skin: Warm and dry, no rashes. Abrasion noted to left ankle. Multiple older abrasions scabbed noted to left upper extremity Musculoskeletal: Cervical vertebral spine nontender, full range of motion Extremities: symmetrical, full range of motion. Psychiatric: Patient is oriented X 3, there is no agitation. Constitutional: Initial Vital Signs Temperature (C) 37.3 C 12/06/16 18:12 Heart Rate 112 H 12/06/16 18:12 Respiratory Rate 16 12/06/16 18:12 Blood Pressure 142/109 H 12/06/16 18:12 O2 Sat (%) 99 12/06/16 18:12 O2 Delivery Mode Room Air Allergies/Adverse Reactions: No Known Allergies Allergy (Unverified 12/06/16 18:16) Home Medications: Medication Instructions Recorded LORazepam [Ativan] 1 mg PO PRN PRN #5 tablet 12/06/16 Medical Decision Making ED Course/Re-evaluation: Discussed the plan of care: EKG, CBC, CMP, Ativan. Reviewed previous records 194: AAO x3, not in any distress, no focal neurological deficits. Ice chips given 1999: AAO x3, not in any distress no seizure activity. Ambulatory with steady gait. Discharge home---> stable. Discussed discharge instructions the patient Differential Diagnosis: Other differential diagnosis considered but not limited to alcohol withdrawal, CVA and closed head injury - Data Points Laboratory Results: Laboratory Results 12/06/16 18:00 12/06/16 17:06 12/06/16 12/06/16 18:00 17:06 WBC 14.67 10^3/uL H 10^3/uL (3.80-9.50) RBC 5.22 10^6/uL 10^6/uL (4.40-6.38) Hgb 16.8 g/dL g/dL (13.7-17.5) Hct 50.9 % % (40.0-51.0) MCV 97.5 fL fL (81.5-99.8) MCH 32.2 pg pg (27.9-34.1) MCHC 33.0 g/dL g/dL (32.4-36.7) RDW 13.1 % % (11.5-15.2) Plt Count 406 10^3/uL H 10^3/uL (150-400) MPV 9.8 fL fL (8.7-11.7) Neut % (Auto) 58.2 % % (39.3-74.2) Lymph % (Auto) 32.0 % % (15.0-45.0) [place] % (Auto) 8.2 % % (4.5-13.0) Eos % (Auto) 0.5 % L % (0.6-7.6) Baso % (Auto) 0.7 % % (0.3-1.7) Nucleat RBC Rel Count 0.0 % % (0.0-0.2) Absolute Neuts (auto) 8.54 10^3/uL H 10^3/uL (1.70-6.50) Absolute Lymphs (auto) 4.69 10^3/uL H 10^3/uL (1.00-3.00) Absolute Monos (auto) 1.20 10^3/uL H 10^3/uL (0.30-0.80) Absolute Eos (auto) 0.08 10^3/uL 10^3/uL (0.03-0.40) Absolute Basos (auto) 0.10 10^3/uL 10^3/uL (0.02-0.10) Absolute Nucleated RBC 0.00 10^3/uL 10^3/uL (0-0.01) Immature Gran % 0.4 % % (0.0-1.1) Immature Gran # 0.06 10^3/uL 10^3/uL (0.00-0.10) Sodium 144 mEq/L mEq/L (134-144) Potassium 3.9 mEq/L mEq/L (3.5-5.2) Chloride 102 mEq/L mEq/L (97-110) Carbon Dioxide 12 mEq/l L mEq/l (22-31) Anion Gap 30 mEq/L H mEq/L (8-16) BUN 14 mg/dL mg/dL (7-23) Creatinine 1.5 mg/dL H mg/dL (0.7-1.3) Estimated GFR 51 Glucose 180 mg/dL H mg/dL (70-100) Calcium 10.2 mg/dL mg/dL (8.5-10.4) Medications Given: Discontinued Medications Lorazepam (Ativan Injection) 0.5 mg IVP EDNOW ONE Stop: 12/06/16 18:34 Last Admin: 12/06/16 18:34 Dose: 0.5 mg Lorazepam (Ativan Injection) 0.5 mg IVP EDNOW ONE Stop: 12/06/16 19:52 Last Admin: 12/06/16 20:07 Dose: 0.5 mg Ondansetron HCl (Zofran) 4 mg IVP EDNOW ONE Stop: 12/06/16 19:33 Last Admin: 12/06/16 19:46 Dose: 4 mg Departure - Departure Disposition: Home, Routine, Self-Care Clinical Impression: Seizure Condition: Good Instructions: Recurrent Seizures in Adults (ED), Alcohol Dependence (ED) Additional Instructions: Discussed discharge instructions 1. Call Dr. Doll's office in the morning for follow-up 2. I have sent a prescription of Ativan to take as needed. No driving until you have further evaluation with Dr. Doll office. I would recommend having a friend stay with you tonight. If any symptoms worsen or you have another recurrent seizure return to the emergency department 3. I would recommend not drinking any alcohol or smoking any marijuana Referrals: Patient,NotPresent [Unknown] - As per Instructions Jane Doll DO [Non Staff and Non MD] - As per Instructions Prescriptions: LORazepam [Ativan] 1 mg PO PRN PRN #5 tablet PRN Reason: Seizures
[2016-12-06 18:16] VITALS: RESP 16; TEMP 99.1
--- NOTE | 2016-12-06 18:25 | CPEKG ---
Heart Rate: 99 RR Interval: 606 P-R Interval: 152 QRSD Interval: 94 QT Interval: 364 QTC Interval: 468 P [place]: 69 QRS [place]: 79 T Wave [place]: 62 EKG Severity - ABNORMAL ECG - EKG Impression: SINUS RHYTHM EKG Impression: CONSIDER LEFT VENTRICULAR HYPERTROPHY Electronically Signed By: Arnie Simms 06-Dec-2016 20:26:03
[2016-12-06] MEDS ORDERED: LORazepam 2 MG/ML INJ ONE (18:27)
[2016-12-06] MEDS ORDERED: LORazepam 2 MG/ML INJ IVP ONE ×2 (18:33→19:51)
[2016-12-06 18:37] LABS: % IMMATURE GRANULYOCYTES 0.4 % (0.0-1.1); ABSOLUTE IMMATURE GRANULOCYTES 0.06 10^3/uL (0.00-0.10); ADD DIFF? NO; ADD MORPH? NO; ADD SCAN? NO; ATYPICAL LYMPHOCYTE FLAG 10 (0-99); FRAGMENT RBC FLAG 0 (0-99); HEMATOCRIT 50.9 % (40.0-51.0); HEMOGLOBIN 16.8 g/dL (13.7-17.5); LEFT SHIFT FLG 0 (0-99); LIPEMIA HEMOLYSIS FLAG 80 (0-99); MEAN CELL HEMOGLOBIN 32.2 pg (27.9-34.1); MEAN CELL VOLUME 97.5 fL (81.5-99.8); MEAN PLATELET VOLUME 9.8 fL (8.7-11.7); PLATELET CLUMPS FLAG 30 (0-99); PLATELET COUNT 406 10^3/uL (150-400); RED BLOOD CELL COUNT 5.22 10^6/uL (4.40-6.38); RED CELL DISTRIBUTION WIDTH 13.1 % (11.5-15.2)
[2016-12-06 18:46] LABS: ANION GAP 30 mEq/L (8-16); CALCIUM 10.2 mg/dL (8.5-10.4); CARBON DIOXIDE 12 mEq/l (22-31); CHLORIDE 102 mEq/L (97-110); CREATININE 1.5 mg/dL (0.7-1.3); GLOMERULAR FILTRATION RATE 51; GLUCOSE 180 mg/dL (70-100); POTASSIUM 3.9 mEq/L (3.5-5.2); SODIUM 144 mEq/L (134-144)
[2016-12-06] MEDS ORDERED: ONDANSETRON 4 MG/2 ML VIAL IVP ONE (19:32)
[2016-12-06 20:40] VITALS: BP 144/98; PULSE 88; O2SAT 98
== END 2016-12-06 20:39 | disposition home or self-care (01) ==
LOC: EDUNIT#
DX: R56.9 Unspecified convulsions (principal); J45.909 Unspecified asthma, uncomplicated
CPT/HCPCS: 96374; J2060; J2405

== ENCOUNTER 2016-12-07 10:43 | Emergency (ER) | payer OTHER ==
[2016-12-07 11:02] VITALS: TEMP 98.8
--- NOTE | 2016-12-07 11:13 | EDPHY ---
H & P Time Seen by Provider: 12/07/16 11:11 HPI/ROS: CHIEF COMPLAINT: Head pressure. HISTORY OF PRESENT ILLNESS: The patient is a 41-year-old male with a history of new onset seizure and prior subarachnoid hemorrhage who presents with a dull headache which he describes as a pressure that has been intermittent since September. He was found down in September 2016 and had a subarachnoid hemorrhage of unclear etiology at that time. He had a subsequent CT scan in October 2016 which showed resolution of the subarachnoid hemorrhage. He was seen yesterday morning in the office by Dr. Doll, neurologist. After his visit, he had a witnessed generalized seizure for which he was seen in the ER. He called his neurologist this morning who told him to return to the ED for MRI and Keppra loading. He has a mild headache today. The headache is lessened when he stays still and increases with bending over or coughing. REVIEW OF SYSTEMS: A complete 10-point review of systems was performed and is negative except for those items mentioned in the HPI. Past Medical/Surgical History: Seizures, ankle fracture, subarachnoid hemorrhage. Social History: Lives in [place], works for [employer]. Smoking Status: Never smoked Physical Exam: General Appearance: Alert, pleasant, does not appear in pain Eyes: Pupils equal and round, no conjunctival pallor or injection ENT, Mouth: Mucous membranes moist Neck: Normal inspection Respiratory: Lungs are clear to auscultation Cardiovascular: Regular rate and rhythm Gastrointestinal: Abdomen is soft and non-tender Neurological: Alert, oriented x3, cranial nerves II through XII intact, motor 5 /5, sensory intact to light touch, normal gait Skin: Warm and dry, no rash Extremities: Nontender, no pedal edema Psychiatric: Mood and affect normal Constitutional: Initial Vital Signs Temperature (C) 37.1 C 12/07/16 11:00 Heart Rate 84 12/07/16 11:00 Respiratory Rate 17 12/07/16 11:00 Blood Pressure 125/100 H 12/07/16 11:00 O2 Sat (%) 92 12/07/16 11:00 O2 Delivery Mode Room Air Allergies/Adverse Reactions: No Known Allergies Allergy (Verified 12/07/16 11:00) Home Medications: Medication Instructions Recorded LORazepam [Ativan] 1 mg PO PRN PRN #5 tablet 12/06/16 Medical Decision Making ED Course/Re-evaluation: I spoke with Dr. Doll prior to this patient's arrival in the ED. She recommended brain MRI/MRA imaging and Keppra IV. An IV was established and labs ordered. Brain MRI/MRA ordered. 1000mg IV Keppra administered. If MRI/a normal , she will follow up with the patient in the office. 1250: MRI results conveyed to me negative by radiology. See Imaging Results section for official radiologist report. I discussed these results with the patient. He understands to take his Keppra as I have prescribed and follow up with Dr. Doll. Differential Diagnosis: Differential diagnosis includes though it is not limited to status epilepticus, hypoglycemia, intracranial hemorrhage, CVA, benzodiazepine withdrawal, alcohol withdrawal, epilepsy. - Data Points Laboratory Results: Laboratory Results 12/07/16 11:15 12/07/16 11:15 Medications Given: Discontinued Medications Levetiracetam 1,000 mg/ Sodium (Chloride) 110 mls @ 440 mls/hr IV EDNOW ONE Stop: 12/07/16 11:28 Last Admin: 12/07/16 11:48 Dose: 110 mls Departure - Departure Disposition: Home, Routine, Self-Care Clinical Impression: New onset seizure Condition: Good Instructions: New-Onset Seizure in Adults (ED) Additional Instructions: You were given 1000mg Keppra in the emergency department today. You should fill your Keppra prescription and take it as instructed. Call Dr. Doll, neurology today to set up a follow up appointment. Return for recurrent seizure, worsening headache, any concerns. Referrals: Steffi Ferraro MD [Primary Care Provider] - As per Instructions Jane Doll DO [Non Staff and Non MD] - As per Instructions Report Scribed for: Tabitha Isbell Report Scribed by: Wu Neal Date of Report: 12/07/16 Time of Report: 11:13 Physician Review and Approval Statement: 12/07/16 11:13 Portions of this note were transcribed by a medical videographer. I personally performed a history, physical exam, medical decision making, and confirmed accuracy of information the transcribed note.
[2016-12-07] MEDS ORDERED: levETIRAcetam 1,000 MG in NS 100 ML IV ONE (11:14)
[2016-12-07 11:28] LABS: % IMMATURE GRANULYOCYTES 0.4 % (0.0-1.1); ABSOLUTE IMMATURE GRANULOCYTES 0.04 10^3/uL (0.00-0.10); ADD DIFF? NO; ADD MORPH? NO; ADD SCAN? NO; ATYPICAL LYMPHOCYTE FLAG 10 (0-99); FRAGMENT RBC FLAG 0 (0-99); HEMATOCRIT 43.2 % (40.0-51.0); HEMOGLOBIN 14.9 g/dL (13.7-17.5); LEFT SHIFT FLG 0 (0-99); LIPEMIA HEMOLYSIS FLAG 90 (0-99); MEAN CELL HEMOGLOBIN CONCENTR. 34.5 g/dL (32.4-36.7); MEAN CELL VOLUME 92.7 fL (81.5-99.8); MEAN PLATELET VOLUME 9.1 fL (8.7-11.7); PLATELET CLUMPS FLAG 0 (0-99); PLATELET COUNT 304 10^3/uL (150-400); RED BLOOD CELL COUNT 4.66 10^6/uL (4.40-6.38); RED CELL DISTRIBUTION WIDTH 13.1 % (11.5-15.2)
[2016-12-07 11:43] LABS: ANION GAP 12 mEq/L (8-16); CALCIUM 9.6 mg/dL (8.5-10.4); CARBON DIOXIDE 22 mEq/l (22-31); CHLORIDE 106 mEq/L (97-110); CREATININE 1.1 mg/dL (0.7-1.3); GLOMERULAR FILTRATION RATE > 60; GLUCOSE 89 mg/dL (70-100); POTASSIUM 3.8 mEq/L (3.5-5.2); SODIUM 140 mEq/L (134-144)
[2016-12-07 12:57] VITALS: BP 136/72; PULSE 70; RESP 14; O2SAT 98
== END 2016-12-07 13:11 | disposition home or self-care (01) ==
DX: G40.909 Epilepsy, unspecified, not intractable, without status epilepticus (principal)
CPT/HCPCS: 96365; J1953

== ENCOUNTER → 2016-12-12 | Outpatient (CLI) | payer OTHER ==
--- NOTE | 2016-12-12 16:33 | CPEEG ---
[f rep st] ELECTROENCEPHALOGRAM DATE OF STUDY: 12/12/2016 INTERPRETATION: Normal EEG during wakefulness and sleep. There were no potentially epileptogenic a bnormalities present in the awake or sleep recordings. REPORT: This EEG contains 10 Hz alpha to the posterior head regions. There was no abnormal activat ion at rest, during photic stimulation or hyperventilation. The patient became drowsy and fell asle ep during the study. There was no abnormal activation during drowsiness, sleep, or during times of arousal. /[id number]/MODL
== END ==
LOC: FCPNEURO 13:58
PROVIDERS: ATTEND Psychiatry & Neurology Neurology
DX: R41.0 Disorientation, unspecified (principal); I60.9 Nontraumatic subarachnoid hemorrhage, unspecified; S06.0X9S Concussion with loss of consciousness of unspecified duration, sequela

== ENCOUNTER 2016-12-22 07:41 | Emergency (ER) | payer OTHER ==
[2016-12-22 07:56] VITALS: RESP 16
[2016-12-22] MEDS ORDERED: NS 1,000 ML IV ONE (08:11)
[2016-12-22 08:17] LABS: % IMMATURE GRANULYOCYTES 0.2 % (0.0-1.1); ABSOLUTE IMMATURE GRANULOCYTES 0.02 10^3/uL (0.00-0.10); ADD DIFF? NO; ADD MORPH? NO; ADD SCAN? NO; ATYPICAL LYMPHOCYTE FLAG 0 (0-99); FRAGMENT RBC FLAG 0 (0-99); HEMOGLOBIN 15.6 g/dL (13.7-17.5); LEFT SHIFT FLG 0 (0-99); LIPEMIA HEMOLYSIS FLAG 90 (0-99); MEAN CELL HEMOGLOBIN 32.3 pg (27.9-34.1); MEAN CELL HEMOGLOBIN CONCENTR. 34.7 g/dL (32.4-36.7); MEAN CELL VOLUME 93.2 fL (81.5-99.8); MEAN PLATELET VOLUME 9.9 fL (8.7-11.7); PLATELET CLUMPS FLAG 10 (0-99); PLATELET COUNT 288 10^3/uL (150-400); RED BLOOD CELL COUNT 4.83 10^6/uL (4.40-6.38)
[2016-12-22 08:43] LABS: ANION GAP 10 mEq/L (8-16); CALCIUM 10.2 mg/dL (8.5-10.4); CARBON DIOXIDE 26 mEq/l (22-31); CHLORIDE 106 mEq/L (97-110); CREATININE 0.9 mg/dL (0.7-1.3); ETHANOL SERUM < 10 mg/dL (0-10); GLOMERULAR FILTRATION RATE > 60; GLUCOSE 93 mg/dL (70-100); POTASSIUM 4.4 mEq/L (3.5-5.2); SODIUM 142 mEq/L (134-144)
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
[2016-12-22 11:50] VITALS: TEMP 97.7
[2016-12-22 12:45] VITALS: BP 122/72; PULSE 71; O2SAT 95
== END 2016-12-22 12:42 | disposition home or self-care (01) ==
LOC: EDUNIT#
DX: G40.909 Epilepsy, unspecified, not intractable, without status epilepticus (principal); J45.909 Unspecified asthma, uncomplicated
CPT/HCPCS: G0480

== ENCOUNTER 2016-12-24 15:26 | Emergency (ER) | payer OTHER ==
[2016-12-24 15:52] VITALS: BP 98/62; PULSE 95; RESP 16; TEMP 98.1; O2SAT 97
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
== END 2016-12-24 17:01 | disposition home or self-care (01) ==
DX: S09.90XA Unspecified injury of head, initial encounter (principal); J45.909 Unspecified asthma, uncomplicated; V49.49XA Driver injured in collision with other motor vehicles in traffic accident, initial encounter; Y92.410 Unspecified street and highway as the place of occurrence of the external cause; Y99.8 Other external cause status